=== PATIENT | male | born 1990 | race Caucasian/White ===

== ENCOUNTER 2017-04-10 17:11 | Emergency (ER) | payer MEDICAID ==
[~2017-04-10] VITALS: Ht 170.2 cm; Wt 66.0 kg
[2017-04-11] MEDS ORDERED: KETOROLAC 60MG/2ML VIAL IM ONE
[2017-04-11 00:20] VITALS: BP 125/77
== END 2017-04-11 01:32 | disposition home or self-care (01) ==
LOC: ER 17:11
DX: S92.902A Unspecified fracture of left foot, initial encounter for closed fracture (principal); W22.8XXA Striking against or struck by other objects, initial encounter; Y93.89 Activity, other specified; Y99.9 Unspecified external cause status; Y92.89 Other specified places as the place of occurrence of the external cause
CPT/HCPCS: 29515; 73610; 73630; 96372; 99284; J1885